=== PATIENT | male | born 1995 | race Caucasian/White ===

== ENCOUNTER 2019-02-20 19:20 | Emergency (ER) | payer OTHER, SELFPAY ==
[2019-02-20 19:25] VITALS: BP 112/54; PULSE 66; RESP 13; TEMP 36.6; O2SAT 96; BMI 19.5
--- NOTE | 2019-02-20 20:01 | PC.NURSE ---
patients hand soaking in chlorhexidine soap and water per provider.
--- NOTE | 2019-02-20 20:32 | PC.NURSE ---
left thumb dressed with surgicel, 4x4 gauze and tube gauze dressing. provider aware and no new orders at this time.
[2019-02-20 20:34] VITALS: BP 104/52; PULSE 56; RESP 16; O2SAT 98
--- NOTE | 2019-02-20 20:50 | ED.WOUNDLAC ---
HPI - Wound/Laceration <MALLORY Roldan - Last Filed: 02/20/19 21:02> General Chief Complaint: Wound/Laceration Stated Complaint: LT THUMB CUT Time Seen by Provider: 02/20/19 19:44 Source: patient Mode of arrival: ambulatory Limitations: no limitations History of Present Illness HPI narrative: The patient is a 23-year-old male who presents with a chief complaint of a left thumb laceration. He states he sliced off the tip of his left thumb with a knife at work. His last tetanus was in 2014. He states he has full range of motion. He has not cleansed out the avulsion. Related Data Allergies Allergy/AdvReac Type Severity Reaction Status Date / Time No Known Drug Allergies Allergy Verified 02/20/19 19:31 Review of Systems <MALLORY Roldan - Last Filed: 02/20/19 21:02> Review of Systems GENERAL: Denies chills, fatigue, malaise, fever, sweats. HEENT: Denies sinus pain, ear pain, sore throat, difficulty swallowing, dizziness. RESPIRATORY: Denies dyspnea, cough, wheezing, hemoptysis, sputum. CARDIOVASCULAR: Denies chest pain, palpitations, orthopnea, edema, GASTROINTESTINAL: Denies nausea, vomiting, abdominal pain, diarrhea, constipation, melena. : Denies dysuria, frequency, incontinence, hematuria, urinary retention. MUSCULOSKELETAL: See HPI SKIN: See HPI NEUROLOGIC: Denies weakness, headache, numbness, change in speech, confusion, seizures, incoordination. PSYCHIATRIC: No concerning psychosocial issues. 12 point review of systems is negative except for those stated above PFSH <MALLORY Roldan - Last Filed: 02/20/19 21:02> Social History Smoking Status: Current every day smoker Social History Smoking Status: Current every day smoker Exam <MALLORY Roldan - Last Filed: 02/20/19 21:02> Narrative Exam Narrative: GENERAL: This is a well-nourished, well-developed patient, appears anxious HEAD: Atraumatic. Normocephalic. No temporal or scalp tenderness. EYES: Pupils equal round and reactive. Extraocular motions intact. No scleral icterus. No injection or drainage. ENT: Nose without bleeding, purulent drainage or septal hematoma. Throat without erythema, tonsillar hypertrophy or exudate. Uvula midline. Airway patent. NECK: Trachea midline. No JVD or lymphadenopathy. Supple, nontender, no meningeal signs. CARDIOVASCULAR: Regular rate and rhythm RESPIRATORY: No cough. No increased respiratory effort. No accessory muscle use. EXTREMITIES: Full range of motion left thumb. Avulsion injury as documented. Capillary refill less than 2 seconds left thumb. Patient is able to flex and extend left thumb. BACK: Nontender without deformity or crepitance. No flank tenderness. NEURO: AOx3. SKIN: 0.5 cm avulsion injury tip of left thumb. No nail involvement. Oozing blood. Controlled bleeding. Initial Vital Signs Initial Vital Signs: Vital Signs Temperature 97.8 F 02/20/19 19:25 Pulse Rate 66 02/20/19 19:25 Respiratory Rate 13 02/20/19 19:25 Blood Pressure 112/54 L 02/20/19 19:25 Pulse Oximetry 96 02/20/19 19:25 <Paul Valdes DO - Last Filed: 02/21/19 02:08> Initial Vital Signs Initial Vital Signs: Vital Signs Temperature 97.8 F 02/20/19 19:25 Pulse Rate 66 02/20/19 19:25 Respiratory Rate 13 02/20/19 19:25 Blood Pressure 112/54 L 02/20/19 19:25 Pulse Oximetry 96 02/20/19 19:25 Course <MALLORY Roldan - Last Filed: 02/20/19 21:02> Vital Signs - 8 hr 02/20/19 19:25 02/20/19 20:34 Temperature 97.8 F Pulse Rate 66 56 L Respiratory Rate 13 16 Blood Pressure 112/54 L Blood Pressure [Right Arm] 104/52 L Pulse Oximetry 96 98 <Paul Valdes DO - Last Filed: 02/21/19 02:08> Vital Signs - 8 hr 02/20/19 19:25 02/20/19 20:34 Temperature 97.8 F Pulse Rate 66 56 L Respiratory Rate 13 16 Blood Pressure 112/54 L Blood Pressure [Right Arm] 104/52 L Pulse Oximetry 96 98 MDM - Wound/Laceration <Dianne Hassan, CERTIFIED MEDICAL CODING SPECIALIST-BC - Last Filed: 02/20/19 21:02> [facility] Narrative Medical decision making narrative: The patient is a 23-year-old male who presents with a chief complaint of a left thumb injury. His tetanus is up-to-date. Given the nature of the injury, I am unable to suture it closed, so it was cleansed with chlorhexidine, dressed with Surgicel and gauze. Discussed at length monitoring for signs and symptoms of infection such as redness pus etc. Discussed keeping wound clean and dry. Discussed return precautions and calling [facility] for recommendations regarding a follow-up provider as he does not have a primary care provider. No questions or concerns upon discharge. Patient declined x-ray to evaluate for foreign body and/or fracture. Discharge Plan Departure Patient Disposition: Home Clinical Impression: Avulsion of skin Discharge Date/Time: 02/20/19 21:09 Interventions: ED Discharge Assessment Last Done: 02/20/19 21:09 Instructions: DI for Avulsion Laceration (Not Requiring Sutures) Activity Restrictions/Additional Instructions: Please monitor your avulsion for signs and symptoms of infection. This includes redness swelling pus etc. contact [facility] to recommend a follow-up provider. Please come back to emergency department for any acute concerns. Referrals: Cuong Ng MD [Primary Care Provider] - <Paul Valdes DO - Last Filed: 02/21/19 02:08> [facility] ED Attending Rafia Attestation: I was immediately available in the department for consultation. Documentation has been reviewed. I agree with assessment and plan.
== END 2019-02-20 21:09 | disposition home or self-care (01) ==
PROVIDERS: Emergency Provider Nurse Practitioner Family; PCP Family Medicine
DX: S61.012A Laceration without foreign body of left thumb without damage to nail, initial encounter (principal); W26.0XXA Contact with knife, initial encounter; Y99.0 Civilian activity done for income or pay
CPT/HCPCS: 99282; 99283